=== PATIENT | female | born 1960 | race African-American/Black ===

== ENCOUNTER → 2018-01-10 | Outpatient (CLI) | payer OTHER | LOC: RAD 11:26 | DX: Z12.31 Encounter for screening mammogram for malignant neoplasm of breast (principal) ==

== ENCOUNTER → 2020-08-10 | Outpatient (CLI) | payer OTHER | LOC: GI 11:07 | PROVIDERS: ATTEND Neuromusculoskeletal Medicine & OMM | DX: M50.11 Cervical disc disorder with radiculopathy, high cervical region (principal); M47.22 Other spondylosis with radiculopathy, cervical region; M48.061 Spinal stenosis, lumbar region without neurogenic claudication ==

== ENCOUNTER → 2020-09-01 | Outpatient (CLI) | payer OTHER ==
[~2020-09-01] VITALS: Ht 162.6 cm; Wt 82.6 kg
[~2020-09-01] MED LIST: DICLOFENAC SODI75 MG PO; MINOXIDIL2.5 MG PO; NAPROXEN500 MG PO; NEURONTIN 300M300 M2 PO; SPIRONOLACTONE25 MG PO
--- NOTE | ~2020-09-01 | HPC ---
[facility] [address] [place] [address] PAIN MANAGEMENT CONSULTATION Name: MARIELLE FERRARA [facility] #[facility] [id number] Admission: 09/01/20 Attend Phys: Eyal Monterroso DO Discharge: Date of : 60 Report #: [id number] CC: Eyal Sanchez MD DATE OF SERVICE: 09/01/2020 CHIEF COMPLAINT: Right shoulder pain. HISTORY OF PRESENT ILLNESS: As you know, the patient is a 60-year-old female who reports acute onset of right shoulder pain that began about 9 months ago. She indicates her pain began after a fall. Pain was located within the shoulder. She sought evaluation through her primary care physician who sent the patient off for MRI of the cervical spine. The findings of the MRI showed mild arthritic changes, no central canal stenosis or neural foraminal stenosis and thus no source of pain that could generate symptoms. She trialled conservative treatment, but did not do well from a pain standpoint, was subsequently referred to our clinic to discuss treatment options for right shoulder pain. The patient indicates today her pain is continuous and steady. She describes the pain as aching, throbbing and sharp. Places current pain score 6/10, daily average at 8/10, worst pain has been is 10/10. The patient reports that any activity of utilizing the right upper extremity causes increasing pain, nothing has improved symptoms. The patient is taking naproxen and gabapentin, but describes them as unhelpful. She has been referred to our service to discuss treatment options for right shoulder pain. PAST MEDICAL HISTORY: 1. Allergic rhinitis. 2. Osteoarthritis. 3. Hyperlipidemia. 4. History of nephrolithiasis. 5. Uterine fibroids. 6. Venous insufficiency. PAST SURGICAL HISTORY: 1. Excision of toenails. 2. Tonsillectomy. 3. Tubal ligation. 4. [place] tooth extraction. SOCIAL HISTORY: The patient reports she is a nonsmoker. She denies IV or illicit drug use. Denies any chronic alcohol use. She is a warehouse person professional. She is working, not receiving workmen's compensation nor is trying to obtain disability benefits. She is not in litigation in regards to pain. She is unaccompanied today. REVIEW OF SYSTEMS: Positive only for right shoulder pain. All other review of systems negative per 12-point review of systems other than those listed in history of present illness. Pain impact score 48/70 indicating severe interference of daily activities secondary to pain. ALLERGIES: No reported drug allergies. CURRENT MEDICATIONS: Minoxidil 2.5 mg once a day, spironolactone 25 mg once a day, naproxen 500 mg twice a day, gabapentin 300 mg 3 times a day. IMAGING: MRI of the cervical spine obtained 08/10/2020 shows mild multilevel cervical spondylosis. No central canal nor neural foraminal stenosis. Findings are consistent with 60-year-old age. PHYSICAL EXAMINATION: VITAL SIGNS: Blood pressure 129/70, pulse 77, respiratory rate 16 and unlabored. The patient is 97% on room air. Height 5 feet 4 inches tall, weight 182 pounds, BMI calculated 31.2. GENERAL: Well-developed, well-nourished, well-hydrated exogenously obese 60-year-old female appearing stated age, pain is rated around 6/10. HEENT: Normocephalic, atraumatic. Pupils equal, round and reactive. NEUROLOGIC: Speech is fluent. The patient deemed a fair historian. LUNGS: Clear, no wheeze, rhonchi or rales. CARDIOVASCULAR: Regular. No appreciable gallop, no rub. ABDOMEN: Soft, nontender, mildly obese, normoactive bowel sounds. EXTREMITIES: Show no clubbing, no cyanosis. No appreciable edema. MUSCULOSKELETAL: Active and passive range of motion of the right shoulder is met with increasing pain. Palpation over the anterior and posterior portion of the shoulder causes patient's typical radiating pain pattern. The patient has positive provocating testing for rotator cuff injury. She cannot participate in the lift-off of the hand from the lower back consistent with rotator cuff issues. Cervical provocation testing is met with mild increase in pain. There is no crepitus with movement. Upper extremity strength equal and symmetrical 5/5. Muscle bulk is symmetrical when comparing left upper extremity to right. She is intact to light touch from C5-T1 dermatomes. Spurling test negative. ASSESSMENT: 1. Right shoulder pain. 2. Osteoarthritis. 3. Chronic neck pain. PLAN: 1. Based on today's physical exam and history the patient has provided, the description the patient uses in regards to pain as well as location of symptoms, it would appear her symptoms are related specifically to the shoulder with radiation towards the neck. I have advised the patient the findings of her MRI shows typical age-related findings. No central canal nor neural foraminal stenosis and thus not the source of her symptoms. No interventional treatments will be necessary nor treatment for the cervical findings based on recent MRI. I do feel that her symptoms are more related to intrinsic shoulder issues. Given the lack of findings in the cervical area and the lack of provocating testing to generate cervical radicular symptoms. We did see significant restriction of motion of the right shoulder. She can only abduct the shoulder approximately 40 degrees before pain ensues. After 140 degrees, she is able to move her shoulder again without difficulty. Otherwise, shoulder had to be moved passively. I am concerned of intrinsic shoulder pathology and I think workup for this would be appropriate. 2. We will be sending the patient for x-ray imaging of the right shoulder for further evaluation. I do not expect to see a significant amount of arthritic changes, though I believe given the lack of capability of movement that there may be a rotator cuff injury secondary to her fall. There may be some changes in spacing in the shoulder, which would be consistent for a rotator cuff injury, though given her age, this may be difficult to see an x-ray imaging. She will undergo x-ray imaging, we will have those findings hopefully later today or first thing tomorrow. 3. We have offered to the patient, an intra-articular shoulder injection as a treatment option. The patient is resistant to undergo injections as she has "a fear of needles" I do feel this would help improve her overall symptoms and also confirmed the diagnosis of rotator cuff injury or at least an intrinsic shoulder pathology. She will consider this option, but at this time does not wish to undergo interventional treatments. 3. We have provided the patient with diclofenac sodium 75 mg dose to be taken twice a day. She is to disregard to use of any other nonsteroidal anti-inflammatory in favor of this medication. This will provide baseline pain control and may improve overall symptoms. We have given her 75 mg tabs b.i.d. with 2 refills. The patient will watch for dyspepsia, worsening of blood pressure, lower extremity edema with its use. If she notes any side effects, discontinue immediately. 4. We plan to see the patient back in followup visit in a week or two. At that time, review the efficacy of the medication provided. If she continues to experience symptoms, would recommend that the patient undergo MRI of the right shoulder. I have written for that today and advised the patient to trial medications first. If this is ineffective, then get the MRI, begin the referral process to Orthopedics. The patient is agreeable. I wish to thank Dr. Sanchez, for the opportunity to see the patient in consultation. We will keep you apprised of response to treatment as we address right shoulder pain. Again, we wish to thank you for the opportunity to see her in consultation. By: [id number] Eyal Monterroso DO /nt
[2020-09-01 14:50] VITALS: BP 129/70
--- NOTE | 2020-09-01 15:07 | NUR ---
Pain Clinic Assessment: 1. History of Osteoarthritis: NONE History of Rheumatoid Arthritis: NONE 2. Height: 5 ft. 4 in. 162.6 cm. Weight: 182.0 lb. oz. 82.555 kg. Patient's BMI: 31.2 3. Vital Signs: BP: 129/70 Pulse: 77 Resp: 16 Temp: 02 Sat: 97 ECG Mon: 4. Pain Intensity: 6 5. Fall Risk: Dizziness: N Needs help standing or walking: N Fallen in the last 3 months: N Fall risk comments: 6. Patient on Blood Thinner: None 7. History of Hypertension: N 8. Opioid Therapy greater than 6 weeks: N Opiate Contract Signed: 9. Risk Assessment Tool Provided: 10. Functional Assessment Tool: 11. Recreational Drug Use: Never Drug Type: Tobacco Use: Never Smoker Tobacco Type: Amount or Packs/day: How Many Years: Alcohol Use: No Frequency: Quant:
== END ==
LOC: RAD 06:43 → PAIN 06:43
PROVIDERS: ATTEND Anesthesiology Pain Medicine
DX: M25.511 Pain in right shoulder (principal); G89.29 Other chronic pain; M54.2 Cervicalgia; Z79.899 Other long term (current) drug therapy

== ENCOUNTER → 2020-11-17 | Outpatient (CLI) | payer OTHER ==
[~2020-11-17] VITALS: Ht 162.6 cm; Wt 86.6 kg
[~2020-11-17] MED LIST changes: +MEDROLDOSEPACK PO
--- NOTE | ~2020-11-17 | HPC ---
[facility] [place] [address] PAIN MANAGEMENT CONSULTATION Name: MARIELLE FERRARA [facility] [id number] Admission: 11/17/20 Attend Phys: Eyal Monterroso DO Discharge: Date of : 60 Report #: [id number] THIS REPORT FOR: cc: Filiberto Sanchez Steven F. DO Johnson, James E. DO ~ DATE OF SERVICE: 11/17/2020 REFERRING PHYSICIAN: Dr. Filiberto Sanchez CHIEF COMPLAINT: Right shoulder pain. HISTORY OF PRESENT ILLNESS: As you know, the patient is a 60-year-old female with longstanding history of right shoulder pain at the beginning of 2019. She was referred to our clinic to discuss treatment options. She was seen in consultation and it was determined the majority of her symptoms was related to the shoulder joint itself. She was sent for MRI of the right shoulder for further evaluation as there was some concern that she may have had some labral issues. I am pleased to advise the patient of the findings show a bursitis of the subacromial and subdeltoid bursa, which is consistent with the distribution of the patient's symptoms today. There was some concern that the patient was suffering from cervical radiculopathy, though the imaging of her cervical spine shows mild changes without significant central canal neural foraminal stenosis. No specific etiology that would lead to her symptoms. She returns today to discuss the findings of this recent imaging of her right shoulder and to discuss treatment options. She reports that the anti-inflammatory medication provided at our last visit is providing only transient improvement in symptoms. She is placing pain score today at 8/10. ALLERGIES: No known drug allergies. CURRENT MEDICATIONS: Gabapentin 300 mg 3 times a day, naproxen 500 mg twice a day, spironolactone 25 mg per day, minoxidil 2.5 mg once a day, diclofenac sodium 75 mg twice a day. SOCIAL HISTORY: The patient continues to report she is a nonsmoker. Denies IV or illicit drug use. Denies any chronic alcohol use. She is unaccompanied at today's visit. IMAGING: MRI of the right shoulder obtained on 09/14/2020 shows a subacromial and subdeltoid bursitis. No osseous abnormalities. No radiographic cuff or injuries noted. PHYSICAL EXAMINATION: VITAL SIGNS: Blood pressure 147/83, pulse 73, respiratory rate 16 and unlabored, patient is 99% on room air. Height 5 feet 4 inches tall, weight [address] [place] [address] PAIN MANAGEMENT CONSULTATION Name: MARIELLE FERRARA Room #: REG [facility]#: [id number] Admission: 11/17/20 Attend Phys: Eyal Monterroso DO Discharge: Date of : 60 Report #: [id number] pounds, BMI calculated 32.8. GENERAL: Well-developed, well-nourished, well-hydrated 60-year-old female appearing stated age, placing current pain score 8/10. HEENT: Normocephalic, atraumatic. Pupils equal, round and reactive. NEUROLOGIC: Speech is fluent. The patient is wearing a mask in compliance with COVID-19 regulations. EXTREMITIES: Show no clubbing, no cyanosis, no edema. MUSCULOSKELETAL: Pain is noted to palpation over the subacromial area as well as along the lateral portion of the left shoulder consistent with bursitis. Range of motion is limited due to pain, but there is no crepitus noted. She does have findings on physical exam concerning again, rotator cuff injury, though given the MRI imaging. This is not the case. There is pain with liftoff testing as well as Apley's testing. ASSESSMENT: 1. Right subacromial and subdeltoid bursitis. 2. Right shoulder pain. PLAN: 1. Based on today's physical exam and history the patient provided, the description the patient uses in regards to pain as well as the findings of her recent MRI showing of the subacromial and subdeltoid bursitis and the lack of any cervical findings consistent with distribution on the right, such as neural foraminal stenosis of cervical spinal stenosis. It would appear the patient is suffering from pain due to the bursitis of the subacromial and subdeltoid area. We have discussed with the patient the treatment option should be conservative in nature. The following changes will be made the patient's treatment today. 2. The patient will be sent for physical therapy 3 times a week for 6 weeks. The patient needs to be active in her physical therapy to maintain range of motion and improve overall symptoms. She will begin this physical therapy as quickly as possible. We do recommend that these modalities such as ultrasound therapy and deep heat treatments to address the bursa irritations. 3. I have provided the patient with a Medrol Dosepak. This will help with her subdeltoid and subacromial bursa. She will continue oral nonsteroidal anti-inflammatories for synergistic effect. Prescription was provided to the patient today. 4. We wish to thank Dr. Sanchez for the opportunity to see the patient in consultation. I am pleased to advise the patient that no surgical options are necessary. Her symptoms appear to be related to the subacromial and subdeltoid bursitis of the right shoulder and can be treated conservatively. The findings of her cervical spine, rule out any cervical radiculopathy. We are hopeful that she will see good improvement in symptoms with this adjustment in treatment today. We will be returning her care to your capable services for further [facility] [address] [place] [address] PAIN MANAGEMENT CONSULTATION Name: MARIELLE FERRARA Room #: [facility]..#: [id number] Admission: 11/17/20 Attend Phys: Eyal Monterroso DO Discharge: Date of : 60 Report #: [id number] evaluation. Again, we wish to thank you for the opportunity to see this patient in consultation. By: [id number] Eyal Monterroso DO /nt
[2020-11-17 12:46] VITALS: BP 147/83
--- NOTE | 2020-11-17 12:51 | NUR ---
Pain Clinic Assessment: 1. History of Osteoarthritis: NONE History of Rheumatoid Arthritis: NONE 2. Height: 5 ft. 4 in. 162.6 cm. Weight: 191.0 lb. oz. 86.637 kg. Patient's BMI: 32.8 3. Vital Signs: BP: 147/83 Pulse: 73 Resp: 16 Temp: 02 Sat: 99 ECG Mon: 4. Pain Intensity: 8 5. Fall Risk: Dizziness: N Needs help standing or walking: N Fallen in the last 3 months: N Fall risk comments: 6. Patient on Blood Thinner: None 7. History of Hypertension: N 8. Opioid Therapy greater than 6 weeks: N Opiate Contract Signed: 9. Risk Assessment Tool Provided: LOW-0 10. Functional Assessment Tool: 48/70 11. Recreational Drug Use: Never Drug Type: Tobacco Use: Never Smoker Tobacco Type: Amount or Packs/day: How Many Years: Alcohol Use: No Frequency: Quant:
== END ==
LOC: PAIN 06:55
PROVIDERS: ATTEND Anesthesiology Pain Medicine
DX: M75.51 Bursitis of right shoulder (principal); Z79.899 Other long term (current) drug therapy